=== PATIENT | female | born 1950 | race African-American/Black ===

== ENCOUNTER 2017-06-27 05:21 | Day surgery (SDC) | payer MEDICARE, OTHER ==
--- NOTE | 2017-06-26 09:46 | Pre-Procedure Note/Attestation ---
Pre-Procedure Note/Attestation Complete Prior to Procedure Planned Procedure: left Procedure Narrative: 1.CATARACT EXTRACTION WITH PHACO AND PC IOL IMPLANTATION, LEFT EYE. 2. LIMBAL RELAXING INCISION, LEFT EYE. Indications for Procedure Pre-Operative Diagnosis: 1. CATARACT (AGE RELATED NUCLEAR) , LEFT EYE. 2.ASTIGMATISM, LEFT EYE, Attestation I attest that I discussed the nature of the procedure; its benefits; risks and complications; and alternatives (and the risks and benefits of such alternatives ), prior to the procedure, with the patient (or the patient's legal energy conservation representative). I attest that, if there was a reasonable possibility of needing a blood transfusion, the patient (or the patient's legal energy conservation representative) was given the [place] Department of Health Services standardized written summary, pursuant to the S[place] Blood Safety Act ([place] Health and Safety Code # 1645, as amended). I attest that I re-evaluated the patient just prior to the surgery and that there has been no change in the patient's H&P, except as documented below: Tmeo Santos MD June 26, 2017 09:46
[~2017-06-27] VITALS: Ht 170.2 cm; Wt 72.6 kg
[2017-06-27] VITALS (10 sets, daily range): BP systolic 118–136; BP diastolic 63–78
[~2017-06-27 05:21] MED LIST: DIOVAN40 MG ORAL; GLUCOTROL10 MG ORAL; HYDROCHLOROTHIA25 MG ORAL; JANUVIA25 MG ORAL; LANTUS SOL100 UNIT/1 SUBQ; METFORMIN HCL1000 M1 ORAL; NORVASC10 MG ORAL; ONDANSETRON ODT4 MG ORAL; SPIRONOLACTONE100 MG ORAL; VICTOZA 2-0.6 MG/0.1 SUBQ
[2017-06-27] MEDS: Akten 3.5% 1ml Btl LEFT EYE SCH ×3 (05:46→06:01)
[2017-06-27] MEDS: Phenylephrine 10% Opth Soln 5ml LEFT EYE SCH ×3 (05:46→06:01)
[2017-06-27] MEDS: Vigamox Opth Soln 3ml LEFT EYE SCH ×3 (05:46→06:01)
[2017-06-27] MEDS: Diclofenac Sod 0.1% Op Soln LEFT EYE SCH ×3 (05:46→06:01)
[2017-06-27] MEDS: Tropicamide 1% Opth 15ml Soln LEFT EYE SCH ×3 (05:46→06:01)
[2017-06-27] MEDS ORDERED: PRAVASTATIN SOD40 M1 ORAL (05:54)
[2017-06-27] MEDS ORDERED: VITAMIN D1000 UNI1 ORAL (05:54)
[2017-06-27] MEDS ORDERED: acetaZOLAMIDE 125mg tab ORAL ONE (06:00)
[2017-06-27] MEDS ORDERED: fentaNYL 100 mcg/2 mL IV ONE (06:59)
[2017-06-27] MEDS ORDERED: Sterile Water Irrig 1000ml IRRIG ONE (07:00)
[2017-06-27] MEDS ORDERED: NS Irrig 1000ml ONE (07:00)
[2017-06-27] MEDS ORDERED: Midazolam 2mg/2ml Inj ONE (07:00)
[2017-06-27] MEDS ORDERED: Propofol 200mg/20ml IV ONE (07:00)
[2017-06-27] MEDS ORDERED: LR 1000ml ONE (07:00)
[2017-06-27] MEDS ORDERED: EPINEPHrine 1mg/1ml Amp ONE (07:02)
[2017-06-27] MEDS ORDERED: Lidocaine 1% MPF 10mg/ml 5ml ONE (07:02)
[2017-06-27] MEDS ORDERED: Dexamethasone 4mg/ml vial ONE (07:02)
[2017-06-27] MEDS ORDERED: Carbachol 0.01% Op Soln 1.5ml vial ONE (07:02)
[2017-06-27] MEDS ORDERED: BSS 15ml BTL ONE (07:03)
[2017-06-27] MEDS ORDERED: BSS 500ml btl ONE (07:03)
[2017-06-27] MEDS ORDERED: Sodium Hyaluronate 10 mg/ml 0.85ml ONE (07:03)
[2017-06-27] MEDS ORDERED: Povidone-Iodine 5% opth solution ONE (07:03)
[2017-06-27] MEDS ORDERED: Tetracaine 0.5% Opth 4ml Soln ONE (07:03)
[2017-06-27] MEDS ORDERED: LR 1000ml 1,000 ML IVLG SCH (07:40)
--- NOTE | 2017-06-27 07:40 | Anethesia Preoperative Eval ---
Anesthesia Pre-op PMH/ROS General Date of Evaluation: June 27, 2017 Time of Evaluation: 07:08 Anesthesiologist: Tyler ASA Score: ASA 3 Mallampati Score Class I : Soft palate, uvula, fauces, pillars visible Class II: Soft palate, uvula, fauces visible Class III: Soft palate, base of uvula visible Class IV: Only hard plate visible Mallampati Classification: Class II Surgeon: Danielle Diagnosis: L eye cataract Surgical Procedure: L eye cataract extraction with IOL Anesthesia History: none Family History: no anesthesia problems Allergies: Coded Allergies: No Known Allergies (Unverified , 05/15/17) Medications: see eMAR Past Medical History Cardiovascular: Reports: HTN; Denies: CAD, CA, valve dz, arrhythmia, other Pulmonary: Denies: asthma, COPD, MAC, other Gastrointestinal/Genitourinary: Reports: GERD - mild; Denies: CRI, ESRD, other Neurologic/Psychiatric: Denies: dementia, CVA, depression/anxiety, TIA, other Endocrine: Reports: DM - on insulin; Denies: hypothyroidism, steroids, other HEENT: Reports: cataract (L), cataract (R); Denies: glaucoma, [place] (L), [place] (R), other Hematology/Immune: Reports: anemia - mild; Denies: DVT, bleeding disorder, other Musculoskeletal/Integumentary: Denies: OA, RA, DJD, DDD, edema, other PMH Narrative: as above PSxH Narrative: Craniotomy for tumor Anesthesia Pre-op Phys. Exam Physician Exam Last Vital Signs Date Time Temp Pulse Resp B/P (MAP) Pulse Ox O2 Delivery O2 Flow Rate FiO2 06/27/17 06:03 97.1 73 20 128/70 100 Room Air 97.1 Constitutional: NAD Neurologic: CN 2-12 intact Cardiovascular: RRR, no M/R/G Respiratory: CTA Gastrointestinal: S/NT/ND Airway Exam Mallampati Score: Class II MO: full Neck: flexible ROM: full Teeth: intact Dentures: no upper, no lower Anesthesia Pre-op A/P Labs see chart Studies Pre-op Studies: EKG - NSR Risk Assessment & Plan Assessment: ASA 3 Plan: MAC Status Change Before Surgery: No Pre-Antibiotics Drug: none Han Scott MD June 27, 2017 07:40
[2017-06-27] MEDS ORDERED: fentaNYL 100 mcg/2 mL IV PRN (07:45)
--- NOTE | 2017-06-27 08:13 | Discharge Summary ---
Discharge Summary Discharge Summary Discharge Summary DATE OF ADMISSION: 06/27/2017 DATE OF DISCHARGE: 06/27/2017 REASON FOR HOSPITALIZATION: 1- Cataract leftv eye 2- Astigmatism SURGERY PERFORMED: 1- Cataract extraction with phaco and PC IOL implantation, leftv eye 2- Limbal relaxing incision ( LRI ), left eye CONDITION IN THE HOSPITAL:The patient tolerated the surgery without complications. DISCHARGE CONDITION: The patient was stable at discharge. DISCHARGE MEDICATIONS: 1. Vigamox eye drops one drop q.i.d, OS 2. Prednisolone one drop q.i.d, OS 3. Prolensa one drop qd, left eye POSTOPERATIVE ORDERS: The patient has to rest at home. No bending, No lifting, No watching Television tonight. POSTOPERATIVE FOLLOW UP: The patient will be followed in my office tomorrow morning at 7 o'clock. Temo Santos MD June 27, 2017 08:13
--- NOTE | 2017-06-27 08:13 | Immediate Post-Op Evaluation ---
Immediate Post-Op Evalulation Immediate Post-Op Evalulation Procedure: L eye cataract extraction with IOL Date of Evaluation: June 27, 2017 Time of Evaluation: 08:12 IV Fluids: 400 Blood Products: none Estimated Blood Loss: none Urinary Output: none Blood Pressure Systolic: 123 Blood Pressure Diastolic: 65 Pulse Rate: 82 Respiratory Rate: 20 O2 Sat by Pulse Oximetry: 99 Temperature (Fahrenheit): 98.6 Pain Score (1-10): 1 Nausea: No Vomiting: No Complications none Patient Status: awake, patent, none Hydration Status: adequate Han Scott MD June 27, 2017 08:13
--- NOTE | 2017-06-27 08:17 | Brief Operative Note ---
Immediate Post Operative Note Operative Note Chief Complaint: Blurry vision, difficulty driving and reading, left eye Pre-op Diagnosis: 1. CATARACT (AGE RELATED NUCLEAR) , LEFT EYE. 2.ASTIGMATISM, LEFT EYE, Procedure: 1- Cataract extraction with phaco and PC IOL implantation, left eye. 2- Limbal relaxing incision (LRI ),left eye 3- Using vision blue for the complex cataract, left eye Post-op Diagnosis: same as pre-op Surgeon: Temo Santos MD. Commis Chef: None Additional Surgeons: None Anesthesiologist: DR. Scott Anesthesia: MAC Specimen: none Complications: none Condition: stable Fluids: 500 ml Estimated Blood Loss: none Drains: none Implant(s) used?: Yes - Monovision PC IOl implanted in the left eye without complication Temo Santos MD June 27, 2017 08:17
[2017-06-27] MEDS ORDERED: acetaZOLAMIDE 125mg tab ONE (08:24)
--- NOTE | 2017-06-27 09:48 | 48 Hour Post Anesthesia Eval ---
Post Anesthesia Evaluation Procedure: L eye cataract extraction with IOL Date of Evaluation: June 27, 2017 Time of Evaluation: 09:47 Blood Pressure Systolic: 136 0: 78 Pulse Rate: 68 Respiratory Rate: 20 Temperature (Fahrenheit): 97.6 O2 Sat by Pulse Oximetry: 98 Airway: patent Nausea: No Vomiting: No Pain Intensity: 2 Hydration Status: adequate Cardiopulmonary Status: stable Mental Status/LOC: patient returned to baseline Follow-up Care/Observations: n/a Post-Anesthesia Complications: none Follow-up care needed: ready to discharge Han Scott MD June 27, 2017 09:48
--- NOTE | 2017-06-28 00:15 | Operative Note - Dictated ---
DATE OF OPERATION: 06/27/2017 FACILITY: [facility]. SURGEON: Temo Santos M.D. ENGINE BUILDUP MECHANIC: None. ANESTHESIOLOGIST: Han Scott M.D. ANESTHESIA: Monitored anesthesia care (MAC). PREOPERATIVE DIAGNOSES: 1. Cataract, left eye. 2. Astigmatism, left eye. POSTOPERATIVE DIAGNOSES: 1. Cataract, left eye. 2. Astigmatism, left eye. SURGERY PERFORMED: 1. Cataract extraction with phacoemulsification and posterior chamber intraocular lens implantation in the left eye. 2. Limbal relaxing incision (LRI) in the left eye. INDICATION FOR SURGERY: The patient is a 66-year-old lady with history of hypertension, hypercholesterolemia, hyperlipidemia, and osteoarthritis. The patient is not allergic to any medications. She is not smoker and she is not a drinker. The patient has diabetes mellitus as well, osteopenia, and coronary artery disease. The patient is taking medications including insulin, Lantus, amlodipine, pravastatin (Pravachol), Liraglutide subcutaneously daily, Valsartan, spironolactone (Aldactone), hydrochlorothiazide 25 mg, magnesium, and cholecalciferol likely D3. She is complaining of blurry vision in the left eye. On examination of the left eye, the cornea is clear. Anterior chamber is clean and quiet, but is very, very shallow. Pupillary reflex is normal. There is no RAPD. right cataract, maybe 5+ nuclear sclerosis and 2+ cortical cataract in the right eye. Funduscopy showed macular degeneration and diabetic retinopathy in the left eye. The patient had macular edema and with some injection in the peripheral eye. To improve vision in the left eye, the cataract has to be removed and astigmatism has to be treated as well. I discussed with the patient that the results of her surgery would not be ideal because of history of macular edema, diabetic retinopathy, and some macular changes. INFORMED CONSENT: The nature of the surgery, risks, benefits, alternatives, and potential complications were all explained in detail to the patient. The potential complications including, but not limited to bleeding, infection, posterior capsular rupture, lens subluxation, flat anterior chamber, iris prolapse, uveitis, corneal edema, macular edema, endophthalmitis, retinal detachment, loss of vision, and even loss of the eye were all explained in detail to the patient. The patient voiced understanding and accepted all the complications. The alternatives including accommodating lens, multifocal lens, toric lens, and conventional cataract surgery with limbal relaxing incision (LRI) for treatment of astigmatism all were explained in detail to the patient. She voiced understanding and accepted all the complications, but she elected to have only conventional cataract surgery with limbal relaxing incision (LRI) for treatment of astigmatism in the left eye. Then, she signed the consent form, which is in the chart. DESCRIPTION OF SURGERY AND FINDINGS: Following that, the patient was taken to the operation room in a stable condition. Lidocaine gel, Akten 3.5% were applied to the conjunctiva of the left eye. IV sedation was given by the anesthesiologist, Dr. Scott. After adequate anesthesia and sedation had been achieved, the left eye was prepped and draped in the sterile fashion for intraocular surgery. Following that, a speculum was placed in the left eye. Before the patient was taken to the operating room, the cornea was marked at 180 and 90 meridian. In the operation room, using a corneal marker and marking pen, the steep meridian of the cornea was marked. Following that, using a franca knife with 600 blade, parallel incisions were placed on the steep meridian of the cornea to treat astigmatism. Following that, using a Super Sharp knife, a clear corneal side port was created. Following that, 1% lidocaine without preservative (MPF) was injected into the anterior chamber. Viscoelastic agent Healon was injected into the anterior chamber. Following that, using a 2.8 mm keratome, a clear corneal temporal keratotomy was performed. Following that, a VisionBlue was injected under the viscoelastic agent to stain the anterior chamber of the crystalline lens. Following that, new fresh clear viscoelastic agent was injected into the anterior chamber again and anterior capsulotomy in the fashion of capsulorrhexis was performed under the viscoelastic agent beautifully. Following that, whole viscoelastic agent was removed from the anterior chamber. Following that, using balanced salt solution, hydrodissection and hydrodelineation was performed and the nucleus was freed. Following that, a clear fresh viscoelastic agent was injected into the anterior chamber to protect the endothelium of the cornea. Following that, using the phacoemulsification machine in the fashion of horizontal chop, the nucleus was removed in toto. Following that, with the irrigation and aspiration unit, the cortical material was removed from the capsular bag and the capsular bag was polished. Following that, the capsular bag was filled with viscoelastic agent, Healon. Following that, a +24.5 diopter ZCB00 foldable IOL with serial number [id number] was inserted into the capsular bag. Using a Sinskey hook, the lens was manipulated within the proper position. Following that, the viscoelastic agent was removed from the anterior posterior part of the lens and the anterior chamber was filled with balanced salt solution. Following that, the wound was hydrated with balanced salt solution and the wound was checked for leakage. There was no leakage. Vigamox eye drops were applied to the conjunctiva of the left eye. The patient tolerated the surgery without complications. At the end of the surgery, the eye was patched with a clear sterile fenestrated shield. Following that, the patient was transferred to the recovery room. In the recovery room, 125 mg Diamox was given by mouth. Postoperative orders and directions were given to the patient. The patient will be discharged home upon stabilization. The patient will be followed in my office tomorrow morning at 11 o'clock. Temo Santos M.D. DR: Mervin JOB#: [id number] CC:
== END 2017-06-27 09:25 | disposition home or self-care (01) ==
LOC: SUR 05:21
DX: H25.12 Age-related nuclear cataract, left eye (principal); H25.012 Cortical age-related cataract, left eye; H52.202 Unspecified astigmatism, left eye; E78.00 Pure hypercholesterolemia, unspecified; E78.5 Hyperlipidemia, unspecified; M19.90 Unspecified osteoarthritis, unspecified site; M81.0 Age-related osteoporosis without current pathological fracture; I13.10 Hypertensive heart and chronic kidney disease without heart failure, with stage 1 through stage 4 chronic kidney disease, or unspecified chronic kidney disease; E11.22 Type 2 diabetes mellitus with diabetic chronic kidney disease; N18.3 Chronic kidney disease, stage 3 (moderate); K21.9 Gastro-esophageal reflux disease without esophagitis
CPT/HCPCS: 65772; 66984; 82962; J0171; J1100; J2250; J2704; J3010; J7120; V2632; 94003; 94150

== ENCOUNTER 2017-07-25 05:41 | Day surgery (SDC) | payer MEDICARE, OTHER ==
--- NOTE | 2017-07-24 12:24 | Pre-Procedure Note/Attestation ---
Pre-Procedure Note/Attestation Complete Prior to Procedure Planned Procedure: right Procedure Narrative: 1.CATARACT EXTRACTION WITH PHACO AND PC IOL IMPLANTATION, RIGHT EYE. 2. LIMBAL RELAXING INCISION, RIGHT EYE. Indications for Procedure Pre-Operative Diagnosis: 1. CATARACT (AGE RELATED NUCLEAR) , RIGHT EYE. 2.ASTIGMATISM, RIGHT EYE, Attestation I attest that I discussed the nature of the procedure; its benefits; risks and complications; and alternatives (and the risks and benefits of such alternatives ), prior to the procedure, with the patient (or the patient's legal phlebotomy services representative). I attest that, if there was a reasonable possibility of needing a blood transfusion, the patient (or the patient's legal phlebotomy services representative) was given the [place] Department of Health Services standardized written summary, pursuant to the Sergio [place] Blood Safety Act ([place] Health and Safety Code # 1645, as amended). I attest that I re-evaluated the patient just prior to the surgery and that there has been no change in the patient's H&P, except as documented below: Temo Santos MD Jul 24, 2017 12:24
[~2017-07-25] VITALS: Ht 165.1 cm; Wt 72.6 kg
[2017-07-25] VITALS (10 sets, daily range): BP systolic 134–150; BP diastolic 59–75
[~2017-07-25 05:41] MED LIST changes: +PRAVASTATIN SOD40 M1 ORAL; +VITAMIN D1000 UNI1 ORAL
[2017-07-25] MEDS ORDERED: acetaZOLAMIDE 125mg tab ORAL ONE (06:00)
[2017-07-25] MEDS: Akten 3.5% 1ml Btl RIGHT EYE SCH ×3 (06:11→06:29)
[2017-07-25] MEDS: Tropicamide 1% Opth 15ml Soln RIGHT EYE SCH ×3 (06:12→06:29)
[2017-07-25] MEDS: Diclofenac Sod 0.1% Op Soln RIGHT EYE SCH ×3 (06:12→06:29)
[2017-07-25] MEDS: Vigamox Opth Soln 3ml RIGHT EYE SCH ×3 (06:12→06:29)
[2017-07-25] MEDS: Phenylephrine 10% Opth Soln 5ml RIGHT EYE SCH ×3 (06:12→06:29)
[2017-07-25] MEDS ORDERED: EPINEPHrine 1mg/1ml Amp ONE (06:55)
[2017-07-25] MEDS ORDERED: BSS 500ml btl ONE (06:56)
[2017-07-25] MEDS ORDERED: Carbachol 0.01% Op Soln 1.5ml vial ONE (06:56)
[2017-07-25] MEDS ORDERED: Lidocaine 1% MPF 10mg/ml 5ml ONE ×2 (06:56→07:05)
[2017-07-25] MEDS ORDERED: Dexamethasone 4mg/ml vial ONE (06:56)
[2017-07-25] MEDS ORDERED: Sodium Hyaluronate 10 mg/ml 0.85ml ONE (06:57)
[2017-07-25] MEDS ORDERED: BSS 15ml BTL ONE (06:57)
[2017-07-25] MEDS ORDERED: Povidone-Iodine 5% opth solution ONE (06:57)
[2017-07-25] MEDS ORDERED: NS Irrig 1000ml ONE (07:00)
[2017-07-25] MEDS ORDERED: Sterile Water Irrig 1000ml IRRIG ONE (07:00)
[2017-07-25] MEDS ORDERED: LR 1000ml ONE (07:00)
[2017-07-25] MEDS ORDERED: fentaNYL 100 mcg/2 mL IV ONE (07:05)
[2017-07-25] MEDS ORDERED: Midazolam 2mg/2ml Inj ONE (07:05)
[2017-07-25] MEDS ORDERED: Propofol 200mg/20ml IV ONE (07:06)
--- NOTE | 2017-07-25 07:17 | Anethesia Preoperative Eval ---
Anesthesia Pre-op PMH/ROS General Date of Evaluation: Jul 25, 2017 Time of Evaluation: 06:55 Anesthesiologist: ASA Score: ASA 3 Mallampati Score Class I : Soft palate, uvula, fauces, pillars visible Class II: Soft palate, uvula, fauces visible Class III: Soft palate, base of uvula visible Class IV: Only hard plate visible Mallampati Classification: Class II Surgeon: carlos Diagnosis: right eye cataract Surgical Procedure: right eye cataract extraction w/ iol implant Anesthesia History: none Family History: no anesthesia problems Allergies: Coded Allergies: No Known Allergies (Unverified , 05/15/17) Past Medical History Cardiovascular: Reports: HTN; Denies: CAD, CA, valve dz, arrhythmia, other Neurologic/Psychiatric: Reports: other - benign brain tumor removed 2001; Denies: dementia, CVA, depression/anxiety, TIA Endocrine: Reports: DM; Denies: hypothyroidism, steroids, other HEENT: Reports: cataract (L), cataract (R); Denies: glaucoma, [place] (L), [place] (R), other Hematology/Immune: Denies: anemia, DVT, bleeding disorder, other Musculoskeletal/Integumentary: Denies: OA, RA, DJD, DDD, edema, other PSxH Narrative: brain tumor removed 2001, left eye cataract extraction Anesthesia Pre-op Phys. Exam Physician Exam Last Vital Signs Date Time Temp Pulse Resp B/P (MAP) Pulse Ox O2 Delivery O2 Flow Rate FiO2 07/25/17 06:16 98.2 72 20 147/69 99 Room Air 98.2 Constitutional: NAD Cardiovascular: RRR Respiratory: CTA Gastrointestinal: S/NT/ND Airway Exam Mallampati Score: Class II MO: full ROM: full Teeth: intact Dentures: no upper, no lower Anesthesia Pre-op A/P Risk Assessment & Plan Assessment: asa 3 Plan: MAC Status Change Before Surgery: No Pre-Antibiotics Drug: none Michelle Holden M.D. Jul 25, 2017 07:17
--- NOTE | 2017-07-25 07:20 | Immediate Post-Op Evaluation ---
Immediate Post-Op Evalulation Immediate Post-Op Evalulation Procedure: right eye cataract extraction w/ iol implant Date of Evaluation: Jul 25, 2017 Time of Evaluation: 08:18 IV Fluids: 10ml Blood Products: 0 Estimated Blood Loss: 0 Urinary Output: 0 Blood Pressure Systolic: 150 Blood Pressure Diastolic: 71 Pulse Rate: 84 Respiratory Rate: 17 O2 Sat by Pulse Oximetry: 95 Temperature (Fahrenheit): 99 Pain Score (1-10): 0 Nausea: No Vomiting: No Complications none Patient Status: awake, patent, none Drug: none Michelle Holden M.D. Jul 25, 2017 07:20
[2017-07-25] MEDS ORDERED: Labetalol 5mg/ml 20ml vial IV PRN (07:30)
[2017-07-25] MEDS ORDERED: fentaNYL 100 mcg/2 mL IV PRN (07:30)
[2017-07-25] MEDS ORDERED: DiphenhydrAMINE 50mg/ml Inj IVP PRN (07:30)
--- NOTE | 2017-07-25 08:23 | Discharge Summary ---
Discharge Summary Discharge Summary Discharge Summary DATE OF ADMISSION: 07/25/2017 DATE OF DISCHARGE: 07/25/2017 REASON FOR HOSPITALIZATION: cataract right eye SURGERY PERFORMED: 1- cataract extraction, roght eye 2- LRI CONDITION IN THE HOSPITAL:The patient tolerated the surgery without complications. DISCHARGE CONDITION: The patient was stable at discharge. DISCHARGE MEDICATIONS: 1. Vigamox eye drops one drop q.i.d, OD 2. Prednisolone one drop q.i.d, OD 3. Prolensa 1 drop qd OD POSTOPERATIVE ORDERS: The patient has to rest at home. No bending, No lifting, No watching Television tonight. POSTOPERATIVE FOLLOW UP: The patient will be followed in my office tomorrow morning at 7 o'clock. Temo Santos MD Jul 25, 2017 08:23
--- NOTE | 2017-07-25 08:27 | Brief Operative Note ---
Immediate Post Operative Note Operative Note Chief Complaint: Blurry vision, right eye difficulty driving and reading, right eye Pre-op Diagnosis: 1. CATARACT (AGE RELATED NUCLEAR) , RIGHT EYE. 2.ASTIGMATISM, RIGHT EYE, Procedure: 1- cataract extraction with phaco and PC IOl implantation, right eye 2- Limbal relaxing incision ( LRi ), right eye Post-op Diagnosis: same as pre-op Surgeon: Temo Santos MD Edge Trimming Machine Operator: None Additional Surgeons: None Anesthesiologist: Anesthesia: MAC Specimen: none Complications: none Condition: stable Fluids: 500ml Estimated Blood Loss: none Drains: none Implant(s) used?: Yes - Monofocal PC IOL implanted in the right eye without complication, [facility] eye Temo Santos MD Jul 25, 2017 08:27
[2017-07-25] MEDS ORDERED: acetaZOLAMIDE 125mg tab ONE (08:37)
--- NOTE | 2017-07-25 09:01 | 48 Hour Post Anesthesia Eval ---
Post Anesthesia Evaluation Procedure: right eye cataract extraction w/ iol implant Date of Evaluation: Jul 25, 2017 Time of Evaluation: 08:50 Blood Pressure Systolic: 135 0: 80 Pulse Rate: 81 Respiratory Rate: 16 Temperature (Fahrenheit): 99 O2 Sat by Pulse Oximetry: 95 Airway: patent Nausea: No Vomiting: No Pain Intensity: 0 Hydration Status: adequate Mental Status/LOC: patient returned to baseline Post-Anesthesia Complications: none Follow-up care needed: ready to discharge Michelle Holden M.D. Jul 25, 2017 09:01
--- NOTE | 2017-07-25 18:00 | Operative Note - Dictated ---
DATE OF OPERATION: 07/25/2017 FACILITY: [facility]. SURGEON: Temo Santos M.D. BOOKING AGENT: None. ANESTHESIOLOGIST: Dr. Holden. ANESTHESIA: Monitored anesthesia care (MAC). PREOPERATIVE DIAGNOSES: 1. Cataract, right eye. 2. Astigmatism, right eye. POSTOPERATIVE DIAGNOSES: 1. Cataract, right eye. 2. Astigmatism, right eye. SURGERY PERFORMED: 1. Cataract extraction with phacoemulsification and posterior chamber intraocular lens implantation, right eye. 2. Limbal relaxing incision (LRI) in the right eye. INDICATION FOR SURGERY: The patient is a 66-year-old lady with history of hypertension, hypercholesterolemia, hyperlipidemia, and osteoarthritis. The patient is not allergic to any medications. She is not a smoker and she is not drinker as well. The patient has diabetes mellitus as well and osteopenia and coronary artery disease. The patient is taking medications including insulin, Lantus, amlodipine, pravastatin (Pravachol), Liraglutide subcutaneously daily, Valsartan, spironolactone (Aldactone), hydrochlorothiazide 20 mg, magnesium, and cholecalciferol D3. She is complaining of blurry vision in the right eye. She has had cataract surgery in the left eye three weeks ago and she is happy with the results. On examination of the right eye, the cornea is clear. Anterior chamber is clean and quiet, but very shallow. Pupillary reflex is normal. There is no RAPD. She has 5+ nuclear sclerosis and 2+ cortical cataract in the right eye. Funduscopy showed mild macular degeneration and mild diabetic retinopathy in the right eye. The patient had a macular edema with some injection in the right eye in the past. She improved her vision in the right eye. The cataract has to be removed and posterior chamber intraocular lens has to be implanted. Also, the astigmatism has to be corrected as well. INFORMED CONSENT: The nature of the surgery, risks, benefits, alternatives, and potential complications were all explained in detail to the patient. The potential complications including, but not limited to bleeding, infection, posterior capsular rupture, lens subluxation, flat anterior chamber, iris prolapse, uveitis, corneal edema, macular edema, endophthalmitis, retinal detachment, loss of vision, and even loss of the eye were all explained in detail to the patient. The patient voiced understanding and accepted all the complications. The alternatives including accommodating lens, multifocal lens, toric lens, and conventional cataract surgery with limbal relaxing incision (LRI) for treatment of astigmatism all were explained in detail to the patient. She voiced understanding and accepted all the complications. She elected to have conventional cataract surgery plus limbal relaxing incision (LRI) for treatment of astigmatism. Then, she signed the consent form, which is in the chart. DESCRIPTION OF SURGERY AND FINDINGS: Following that, the patient was taken to the operation room in a stable condition. Lidocaine gel, Akten 3.5% were applied to the conjunctiva of the right eye. IV sedation was given by the anesthesiologist, Dr. Holden. After adequate anesthesia and sedation had been achieved, the right eye was prepped and draped in the sterile fashion for intraocular surgery. Following that, a speculum was placed in the right eye. Before the patient was taken to the operating room, the cornea was marked at 180 and 90 meridian. In the operation room, using a corneal marker and marking pen, the steep meridian of the cornea was marked. Following that, using a franca knife with 600 blade, two parallel incisions were placed on the steep meridian of the cornea to treat astigmatism. Following that, using a Super Sharp knife, a clear corneal side port was created. Following that, 1% lidocaine without preservative (MPF) was injected into the anterior chamber. Viscoelastic agent Healon was injected into the anterior chamber. Following that, using a 2.8 mm keratome, a clear corneal temporal keratotomy was performed. Following that, a VisionBlue was injected under the viscoelastic agent to stain the anterior capsule of the crystalline lens. Following that, a fresh clear viscoelastic agent, Healon was injected into the anterior chamber again. Under the viscoelastic agent, an anterior capsulotomy was performed in the fashion of capsulorrhexis beautifully. Following that, whole viscoelastic agent was removed from the anterior chamber. Following that, using balanced salt solution, hydrodissection and hydrodelineation was performed and the nucleus was freed. Following that, a clear viscoelastic agent was injected into the anterior chamber again to protect the endothelium of the cornea. Following that, using the phacoemulsification machine in the fashion of horizontal chop, the nucleus was removed in toto. Following that, with the irrigation and aspiration unit, the cortical material was removed from the capsular bag and the capsular bag was polished. Following that, the capsular bag was filled with viscoelastic agent, Healon. Following that, a +24.5 diopter ZCB00 foldable IOL with serial number was injected into the capsular bag. Using a Sinskey hook, the lens was manipulated within the proper position. The whole viscoelastic agent was removed from the anterior posterior part of the lens. Anterior chamber was filled with balanced salt solution and the wound was hydrated with balanced salt solution. The wound was checked for leakage, there was no leakage. Vigamox eye drops were applied to the conjunctiva of the right eye. The patient tolerated the surgery without complications. At the end of the surgery, the eye was patched with a clear sterile fenestrated shield. Following that, the patient was transferred to the recovery room. In the recovery room, 125 mg Diamox was given by mouth stat. Postoperative orders and directions were given to the patient. The patient will be discharged home upon stabilization. The patient will be followed in my office tomorrow morning in the office. Temo Santos M.D. DR: LUKE JOB#: [id number] CC:
== END 2017-07-25 09:40 | disposition home or self-care (01) ==
LOC: SUR 05:41
DX: H25.11 Age-related nuclear cataract, right eye (principal); H25.011 Cortical age-related cataract, right eye; I10 Essential (primary) hypertension; E78.5 Hyperlipidemia, unspecified; E78.00 Pure hypercholesterolemia, unspecified; M19.90 Unspecified osteoarthritis, unspecified site; Z79.4 Long term (current) use of insulin; E11.9 Type 2 diabetes mellitus without complications
CPT/HCPCS: 65772; 66984; 82962; J0171; J1100; J2250; J3010; J7120; V2632; 94003; 94150